=== PATIENT | female | born 1970 | race Caucasian/White ===

== ENCOUNTER 2021-01-13 17:50 | Inpatient (IN) | payer OTHER ==
[~2021-01-13] VITALS: Ht 160 cm; Wt 77.5 kg
--- NOTE | 2021-01-13 18:13 | NUR ---
INCREASED SOB/COUGH.CHEST CONGESTION X 3 DAYS. "THE SMOKE AND THE COLD MY GRANDCHILD GAVE ME IS REALLY GETTING TO ME." ORIGINALLY PRESENTED TO - ROOM AIR 86% [facility] GAVE ALBUTEROL AND DUONEB AND PLACED 2L NC WITH INCREASED BREATH SOUNDS AND POX TO 93% 1/2 PACK/DAY 2 WORD SENTENCES. WHEEZING AND DEMINISHED
[2021-01-13] MEDS ORDERED: methylPREDNISolone SOD SUCC 125 MG/2 ML ONE (19:06)
--- NOTE | 2021-01-13 19:14 | NUR ---
pt medicated per mar
[2021-01-13] MEDS ORDERED: ALBUTEROL/IPRATROPIUM 2.5MG/0.5MG, 3 ML ONE (19:24)
[2021-01-13 19:27] LABS: BASOPHILS % (AUTO) 1 % (0-1); EOSINOPHILS % (AUTO) 6 % (1-7); LYMPHOCYTES % (AUTO) 24 % (22-44); MEAN CORPUSCULAR HEMOGLOBIN 29.9 pg (27.0-34.8); MEAN CORPUSCULAR HGB CONC 33.4 g/dL (32.4-35.8); MEAN PLATELET VOLUME 7.7 fL (7.4-10.4); MONOCYTES % (AUTO) 9 % (2-9); NEUTROPHILS % (AUTO) 60 % (42-75); PLATELET COUNT 333 x10^3/uL (130-400); RED BLOOD COUNT 5.12 x10^6/uL (3.82-5.3); RED CELL DISTRIBUTION WIDTH 14.5 % (9.6-15.2)
[2021-01-13] MEDS ORDERED: SODIUM CHLORIDE FLUSH 10ML SYR IVF ONE (19:30)
[2021-01-13] MEDS ORDERED: ALBUTEROL/IPRATROPIUM 2.5MG/0.5MG, 3 ML NPPB ONE (19:30)
[2021-01-13] MEDS ORDERED: SODIUM CHLORIDE 0.9% 1,000ML IVBOLUS ONE (19:30)
[2021-01-13] MEDS ORDERED: methylPREDNISolone SOD SUCC 125 MG/2 ML IV ONE (19:30)
[2021-01-13] MEDS ORDERED: ALBUTEROL SULFATE 2.5 MG/3 ML NPPB ONE ×2 (19:30→20:30)
--- NOTE | 2021-01-13 19:31 | NUR ---
RT IN WITH PT AT THIS TIME
[2021-01-13 19:44] LABS: ALBUMIN 3.5 g/dL (3.4-5.0); ANION GAP 5 mmol/L (5-15); CALCIUM 8.8 mg/dL (8.5-10.1); CHLORIDE 108 mmol/L (98-107)
[2021-01-13 19:46] LABS: CREATININE 0.97 mg/dL (0.55-1.02)
[2021-01-13] MEDS ORDERED: ALBUTEROL SULFATE 2.5 MG/3 ML ONE (20:20)
--- NOTE | 2021-01-13 20:22 | NUR ---
TOOK PT FOR ROAD TEST. AFTER ABOUT 25 FEET PT HANDS WERE ON HER HIPS. TOOK PT BACK TO ROOM. PT SAT DOWN WITH HANDS ON HER KNEES TRYING TO CATCH HER BREATH. PT WAS 80% ON ROOM AIR. PT PLACED BACK ON 4 LITERS 02. PT 02 MYESHA TO 94%. MD BLEDSOE. PT WILLING TO STAY IN [facility]
[2021-01-13] MEDS: ALBUTEROL/IPRATROPIUM 2.5MG/0.5MG, 3 ML NPPB SCH (21:00)
[2021-01-13] MEDS ORDERED: ALBUTEROL SULFATE 2.5MG/0.5ML NPPB PRN (21:30)
[2021-01-13] MEDS ORDERED: ENALAPRILAT 1.25 MG/ML, 2ML IVPush PRN (21:30)
[2021-01-13] MEDS ORDERED: morphine SULFATE 10 MG/ML, 1ML IVPush PRN (21:30)
[2021-01-13] MEDS ORDERED: OXYcodone IR 5MG TABLET PO PRN (21:30)
[2021-01-13] MEDS ORDERED: DOCUSATE 100 MG CAPSULE PO PRN (21:30)
[2021-01-13] MEDS ORDERED: ACETAMINOPHEN 325 MG TABLET PO PRN (21:30)
[2021-01-13] MEDS ORDERED: ONDANSETRON 2MG/ML, 2ML IVPush PRN (21:30)
[2021-01-13] MEDS ORDERED: GUAIFENESIN/DM 200-20MG, 10ML UDC PO PRN (21:30)
[2021-01-13] MEDS ORDERED: ZOLPIDEM 5MG TABLET PO PRN (21:30)
[2021-01-13] MEDS ORDERED: CYCLOBENZAPRINE 10 MG TABLET PO PRN (22:00)
[2021-01-13] MEDS ORDERED: ENOXAPARIN 40 MG/0.4 ML SQ SCH (22:00)
[2021-01-13 22:31] VITALS: BP 158/97
[2021-01-13] MEDS ORDERED: LISI1TAB23 PO (23:14)
[2021-01-13] MEDS ORDERED: ALBU90AE2 INH (23:22)
[2021-01-13] MEDS ORDERED: FLUT12AE INH (23:23)
[2021-01-13 23:41] VITALS: BP 158/97
[2021-01-14 01:07] VITALS: BP 148/91
[2021-01-14] MEDS: ALBUTEROL/IPRATROPIUM 2.5MG/0.5MG, 3 ML NPPB SCH (03:27)
[2021-01-14 05:08] LABS: BASOPHILS % (AUTO) 1 % (0-1); EOSINOPHILS % (AUTO) 0 % (1-7); LYMPHOCYTES % (AUTO) 6 % (22-44); MEAN CORPUSCULAR HEMOGLOBIN 29.9 pg (27.0-34.8); MEAN CORPUSCULAR HGB CONC 33.1 g/dL (32.4-35.8); MEAN PLATELET VOLUME 8.2 fL (7.4-10.4); MONOCYTES % (AUTO) 0 % (2-9); NEUTROPHILS % (AUTO) 93 % (42-75); PLATELET COUNT 365 x10^3/uL (130-400); RED BLOOD COUNT 5.26 x10^6/uL (3.82-5.3); RED CELL DISTRIBUTION WIDTH 14.7 % (9.6-15.2)
[2021-01-14 05:15] LABS: ANION GAP 9 mmol/L (5-15); CHLORIDE 106 mmol/L (98-107); CREATININE 1.04 mg/dL (0.55-1.02)
[2021-01-14 06:31] VITALS: BP 158/88
[2021-01-14] MEDS ORDERED: methylPREDNISolone SOD SUCC 40 MG/ML IV SCH (07:00)
[2021-01-14] MEDS ORDERED: MEDROL 4MG DOSEPAK PO SCH (08:00)
[2021-01-14] MEDS ORDERED: METH4TAB6 PO (09:16)
[2021-01-14] MEDS ORDERED: ALBU90AE2 INH (09:17)
[2021-01-14] MEDS ORDERED: FLUT12AE INH (09:17)
[2021-01-14 11:57] VITALS: BP 133/92
[2021-01-14 12:40] VITALS: BP 133/92
== END 2021-01-14 14:20 | disposition home health service (06) | DRG 202 ==
LOC: ED 20:58 → EDIP 21:16 → 3N 21:52 → DCLOUNGE 01-14 14:15
PROVIDERS: ADMIT Internal Medicine; ATTEND Hospitalist
DX: J45.902 Unspecified asthma with status asthmaticus (principal); J96.01 Acute respiratory failure with hypoxia; J44.9 Chronic obstructive pulmonary disease, unspecified; I10 Essential (primary) hypertension; E87.6 Hypokalemia; E87.8 Other disorders of electrolyte and fluid balance, not elsewhere classified; Z82.49 Family history of ischemic heart disease and other diseases of the circulatory system; F17.200 Nicotine dependence, unspecified, uncomplicated; R73.9 Hyperglycemia, unspecified
CPT/HCPCS: 36415; J7613; 71045; 80048; 82040; 83735; 84100; 85025; 93005; 94640; G0378; J7509; J2920; J2930; J7030